=== PATIENT | female | born 1935 | race Caucasian/White ===

== ENCOUNTER 2018-12-18 11:46 | Observation (INO) | payer MEDICARE ==
[~2018-12-18] VITALS: Ht 152.4 cm; Wt 59.6 kg
[~2018-12-18 11:46] MED LIST: AMOXICILLIN250 MG PO; ATENOLOL50 MG PO; LEVOTHYROXINE50 MCG PO
--- NOTE | 2018-12-18 12:26 | NUR ---
xray at bedside
[2018-12-18 12:45] LABS: BASOPHILS % 0.4 % (0.0-1.0); EOSINOPHILS % 0.4 % (0.0-6.0); HEMATOCRIT 40.8 % (34.2-44.1); HEMOGLOBIN 13.7 g/dL (12.0-16.0); LYMPHOCYTES # (AUTO) 0.9 (1.0-3.2); LYMPHOCYTES % 15.6 % (18.0-39.1); MEAN CORPUSCULAR HEMOGLOBIN 29.6 pg (28-32); MEAN CORPUSCULAR HGB CONC 33.6 g/dL (31-35); MEAN CORPUSCULAR VOLUME 88.1 fL (81-99); MONOCYTES # (AUTO) 0.4 (0.2-0.8); MONOCYTES % 6.4 % (4.4-11.3); NEUTROPHILS # (AUTO) 4.2 (2.1-6.9); PLATELET COUNT 186 x10e3/uL (140-360); RED BLOOD COUNT 4.63 x10e6/uL (3.6-5.1)
--- NOTE | 2018-12-18 12:56 | Diagnostic Imaging Report ---
EXAMINATION: CHEST SINGLE (PORTABLE) INDICATION: Chest pain, shortness of breath. COMPARISON: Images from prior chest radiograph on 10/11/2016 were not available for review at the time of this dictation. FINDINGS: TUBES and LINES: None. LUNGS: Lungs are well inflated. No evidence of pneumonia. Mild central vascular congestion without evidence of pulmonary edema. A nodular opacity projecting over the right lower lung likely represents nipple shadow. PLEURA: No pleural effusion or pneumothorax. HEART AND MEDIASTINUM: The cardiomediastinal silhouette is unremarkable. BONES AND SOFT TISSUES: No acute osseous abnormality. Soft tissues are unremarkable. UPPER ABDOMEN: No free air under the diaphragm. IMPRESSION: No acute radiographic abnormality. Nodular opacity overlying the right lower lung likely represents nipple shadow. Repeat radiograph with nipple marker suggested for further evaluation. Signed by: Dr. Wilfredo Carr MD on 12/18/2018 12:53 PM
[2018-12-18 14:11] LABS: BILIRUBIN,URINE NEGATIVE (NEGATIVE); CLARITY,URINE CLEAR (CLEAR); COLOR,URINE YELLOW (YELLOW); KETONES,URINE 1+ (NEGATIVE); LEUKOCYTE ESTERASE ,URINE NEGATIVE (NEGATIVE); NITRITE,URINE NEGATIVE (NEGATIVE); PROTEIN,URINE DIPSTICK NEGATIVE (NEGATIVE); URINE UROBILINOGEN 0.2 mg/dL (0.2 - 1)
--- NOTE | 2018-12-18 14:26 | Diagnostic Imaging Report ---
EXAMINATION: Chest radiograph - single view INDICATION: Status post nipple marker placement, possible lung nodule per prior chest radiograph. COMPARISON: Same day chest radiograph 12/18/2018. FINDINGS: TUBES and LINES: None. LUNGS: Lungs are well inflated. No evidence of pneumonia. Mild central vascular congestion without evidence of pulmonary edema. Nipple markers are seen bilaterally. Previously noted nodular opacity in the right lower lung represented overlying ribs. PLEURA: No pleural effusion or pneumothorax. HEART AND MEDIASTINUM: The cardiomediastinal silhouette is unremarkable. BONES AND SOFT TISSUES: No acute osseous abnormality. Soft tissues are unremarkable. UPPER ABDOMEN: No free air under the diaphragm. IMPRESSION: Status post interval nipple marker placement. Previously noted right lower lung nodular opacity represented overlying ribs. No acute radiographic abnormality. Signed by: Dr. Wilfredo Carr MD on 12/18/2018 2:23 PM
[2018-12-18 14:28] LABS: EPITHELIAL CELLS,URINE RARE /LPF
[2018-12-18 15:20] LABS: INR 0.94; PROTHROMBIN TIME 13.4 seconds (11.9-14.5)
[2018-12-18 15:26] LABS: ALANINE AMINOTRANSFERASE 12 IU/L (0-55); ALBUMIN 3.5 g/dL (3.5-5.0); ALBUMIN/GLOBULIN RATIO 1.1 (0.8-2.0); ALKALINE PHOSPHATASE 83 IU/L (40-150); ANION GAP 15.3 mmol/L (8-16); BLOOD UREA NITROGEN 11 mg/dL (7-26); BUN/CREATININE RATIO 16 (6-25); CALCIUM 8.5 mg/dL (8.4-10.2); CARBON DIOXIDE 27 mmol/L (22-29); CHLORIDE 101 mmol/L (98-107); CREATINE KINASE 58 IU/L (29-168); EST GLOMERULAR FILTRATION RATE > 60 ML/MIN (60-); GLUCOSE 78 mg/dL (74-118); MAGNESIUM 2.1 MG/DL (1.3-2.1); POTASSIUM 4.3 mmol/L (3.5-5.1); SODIUM 139 mmol/L (136-145)
[2018-12-18] MEDS ORDERED: DEXTROSE 50% SYRINGE 50 ML IV PRN (15:45)
[2018-12-18] MEDS ORDERED: ASPIRIN 81 MG CHEW TAB PO ONE (15:45)
--- OUTSIDE RECORDS SUMMARY | 2018-12-18 15:56 | XMS REPORT ---
Author Author [facility] Address Unknown Phone Unavailable Care Team Providers Care Port Steward Name Role Phone Gianna DC Unavailable Unavailable Problems This patient has no known problems. Allergies, Adverse Reactions, Alerts This patient has no known allergies or adverse reactions. Medications This patient has no known medications. Results Test Description Test Time Test Comments Text Results Atomic Results Result Comments CHEST SINGLE (PORTABLE) 2018-12-18 14:20:00 [place] [address] Patient Name: TEODORA SOLARES MR #: [id number] : 1935 Age/Sex: 83/F Req #: [id number] Adm Physician: Ordered by: EULOGIO TENORIO MARKETING PRODUCTION COORDINATOR Report #: [id number] Location: ER Room/Bed: Procedure: [id number] DX/CHEST SINGLE (PORTABLE) Exam Date: 12/18/18 Exam Time: 1405 REPORT STATUS: Signed EXAMINATION: Chest radiograph - single view IN DICATION: Status post nipple marker placement, possible lung nodule per prior chest radiograph. COMPARISON: Same day chest radiograph 12/18/2018. FINDINGS: TUBES and LINES: None. LUNGS: Lungs are well inflated. No evidence of pneumonia. Mild central vascular congestion without evidence of pulmonary edema. Nipple markers are seen bilaterally. Previously noted nodular opacity in the right lower lung represented overlying ribs. PLEURA: No pleural effusion or pneumothorax. HEART AND MEDIASTINUM: The cardiomediastinal silhouette is unremarkable. BONES AND SOFT TISSUES: No acute osseous abnormality. Soft tissues are unremarkable. UPPER ABDOMEN: No free air under the diaphragm. IMPRESSION: Status post interval nipple marker placement. Previously noted right lower lung nodular opacity represented overlying ribs. No acute radiographic abnormality. Signed by: Dr. Marybel Allen MD on 12/18/2018 2:23 PM Dictated By: MARYBEL ALLEN MD 1423 Transcribed By: DEDE on 12/18/18 142 COPY TO: EULOGIO TENORIO NP CHEST SINGLE (PORTABLE) 2018-12-18 12:46:00 [place] [address] Patient Name: TEODORA SOLARES MR #: [id number] : 1935 Age/Sex: 83/F Req #: [id number] Adm Physician: Ordered by: EULOGIO TENORIO NP Report #: [id number] Location: ER Room/Bed: Procedure: [id number] DX/CHEST SINGLE (PORTABLE) Exam Date: 12/18/18 Exam Time: 1215 REPORT STATUS: Signed EXAMINATION: CHEST SINGLE (PORTABLE) INDIC ATION: Chest pain, shortness of breath. COMPARISON: Images from prior chest radiograph on 10/11/2016 were not available for review at the time of this dictation. FINDINGS: TUBES and LINES: None. LUNGS: Lungs are well inflated. No evidence of pneumonia. Mild central vascular congestion without evidence of pulmonary edema. A nodular opacity projecting over the right lower lung likely represents nipple shadow. PLEURA: No pleural effusion or pneumothorax. HEART AND MEDIASTINUM: The cardiomediastinal silhouette is unremarkable. BONES AND SOFT TISSUES: No acute osseous abnormality. Soft tissues are unremarkable. UPPER ABDOMEN: No free air under the diaphragm. IMPRESSION: No acute radiographic abnormality. Nodular opacity overlying the right lower lung likely represents nipple shadow. Repeat radiograph with nipple marker suggested for further evaluation. Signed by: Dr. Marybel Allen MD on 12/18/2018 12:53 PM Dictated By: MARYBEL ALLEN MD 1253 Transcribed By: DEDE on 12/18/18 1253 COPY TO: EULOGIO TENORIO NP
[2018-12-18] MEDS: INSULIN REGULAR, HUMAN 100 UNIT/1 ML 3ML VIAL SQ SCH ×2 (16:41→21:00)
[2018-12-18] MEDS: LISINOPRIL 10 MG TAB PO SCH (19:00)
--- NOTE | 2018-12-18 19:10 | NUR ---
Bedside rounds completed with Candy manager shift nurse.
[2018-12-18 22:22] VITALS: BP 132/78
[2018-12-18 22:30] VITALS: BP 132/78
--- NOTE | 2018-12-18 22:30 | NUR ---
PATIENT IS A NEW ADMIT THAT ARRIVED VIA WHEELCHAIR. PATIENT IS ALERT AND ORIENTED. PATIENT HAS BEEN ASSISTED INTO THE BED. BED IS IN LOWEST POSITION AND CALL MUNSON IS WITHIN REACH. WILL CONTINUE TO MONITOR PATIENT.
--- NOTE | 2018-12-18 23:10 | Consultation ---
DATE OF CONSULTATION: CARDIOLOGY CONSULTATION REASON FOR CONSULTATION: Chest pain. HISTORY OF PRESENT ILLNESS: This is an 83-year-old woman with a history of Sheehan's esophagus, gastroesophageal reflux disease, hypothyroidism, hypertension, and a "irregular heart beat." She reports progressively worsening chest pain described as a tightened and sharp sensation, moderate to severe intensity, present since Tuesday, associated with some flushing and diaphoresis. Upon arrival here, she was noted to be hypertensive and her first set of cardiac enzymes were within normal limits. REVIEW OF SYSTEMS: Twelve-point review of systems was conducted and is negative otherwise except as above in the HPI. PAST MEDICAL HISTORY: As stated above in the HPI. PAST SURGICAL HISTORY: Recent history of cholecystectomy. PAST FAMILY HISTORY: No premature coronary artery disease or sudden cardiac . SOCIAL HISTORY: No illicit drug use, alcohol use, or tobacco use. ALLERGIES: SULFA. MEDICATIONS: See medication reconciliation form. PHYSICAL EXAMINATION: VITAL SIGNS: Temperature is 98, heart rate is 65, respirations 16, blood pressure is 171/65, oxygen saturation 97% on room air. GENERAL: She is a well-appearing, elderly woman, lying comfortably in bed. HEAD: Normocephalic, atraumatic. EYES: The extraocular movements are intact. Conjunctivae are clear. NECK: No JVD, no bruits. CARDIOVASCULAR: She is regular rate and rhythm. There is a systolic murmur heard best at the left upper sternal border. LUNGS: Clear to auscultation. ABDOMEN: Soft, nontender, nondistended. EXTREMITIES: No edema. VASCULAR: 2+ pulses. SKIN: Warm, dry, intact. NEUROLOGICAL: No focal deficits noted. LABORATORY VALUES: Reviewed. Sodium 139, creatinine 0.7. Normal liver function tests. Troponin I 0.006. BNP is 63. Chest x-ray shows no acute cardiopulmonary abnormality. Twelve-lead electrocardiogram shows normal sinus rhythm. IMPRESSION: 1. Precordial pain. 2. Gastroesophageal reflux disease. 3. Hypertension. 4. Hypothyroidism. 5. Sheehan's esophagus. RECOMMENDATIONS: Continue to rule out for acute coronary syndrome with cardiac enzymes. Will order a 2D echocardiogram and keep the patient n.p.o. after midnight for a stress test if her cardiac enzymes remain within normal limits. Will start afterload reduction for better blood pressure control. Otherwise, continue all current cardiovascular medications. Job#: [id number]
[2018-12-19] VITALS (8 sets, daily range): BP systolic 97–147; BP diastolic 55–65
[2018-12-19 04:08] LABS: CHOL/HDL RATIO 2.9 (3.0-3.6)
[2018-12-19 04:19] LABS: CREATINE KINASE MB 1.2 ng/mL (0-5.0)
--- NOTE | 2018-12-19 07:02 | NUR ---
report given to day nurse. patient is resting comfortably in bed. bed is in lowest position and call german is within reach.
[2018-12-19] MEDS: INSULIN REGULAR, HUMAN 100 UNIT/1 ML 3ML VIAL SQ SCH ×3 (07:30→16:30)
[2018-12-19] MEDS: LISINOPRIL 10 MG TAB PO SCH (09:00)
[2018-12-19] MEDS: ASPIRIN 81 MG ENTERIC COATED PO SCH (09:00)
[2018-12-19] MEDS ORDERED: REGADENOSON 0.4 MG/5 ML SYR IV ONE (09:32)
[2018-12-19] MEDS ORDERED: ONDANSETRON HCL INJ 2MG/ML 2ML 2 MG/ML VIAL ONE (10:45)
--- NOTE | 2018-12-19 12:38 | NUR ---
SOCIAL WORK INITIAL ASSESSMENT Office Worker to bedside to discuss plan of care with patient/family. CM/SW role and care transitions discussed. Anticipated discharge plan discussed along with duration of care. CM/SW discussed patients right to make decisions in care. CM/SW work hours given. Patient lives: IN HOME WITH FAMILY Admit/Transfer: VIA ED POA/Emergency contact: DAUGHTER EVON [phone] OR SON JUSTIN [phone] Current/Previous Home Health: NONE PCP/Follow-up Care: [facility] Current/Previous DME: [facility] A WALKER Other Services: NONE Employment Status: RETIRED Areas of Concerns: NONE Referral Needs: NONE Education Needs: NONE IMM/DANIELS given and signed (if applicable): UPON ADMISSION Goal for discharge: RETURN HOME WITH FAMILY CM/SW left business card at the bedside with contact information. Name and number was also written on the patients whiteboard. Patient verbalized understanding of discussion. CM will follow-up with ongoing discharge and transition of care needs.
[2018-12-19 13:06] LABS: CREATINE KINASE MB 1.6 ng/mL (0-5.0)
--- NOTE | 2018-12-19 14:15 | NUR ---
Visit made by the Spiritual Care Department Pastoral Visitor, Narcisa Suarez. PV provided pastoral presence, prayer, hospitality, and supportive listening. Pastoral Visitor informed pt/family of the scope of Professor Of Business Administration Services and availability. SATHISH ABRAHAM Pipe Recovery Specialist Spiritual Care Department O: [phone] Pager: [phone] ([phone] number calling from)
--- NOTE | 2018-12-19 14:57 | NUR ---
Called Dr. Neela Arana to notify him of consult patient reporting abdominal pain nausea, and diarrhea. He will come to see patient.
[2018-12-19] MEDS ORDERED: ONDANSETRON HCL INJ 2MG/ML 2ML 2 MG/ML VIAL IV NR (18:30)
[2018-12-19] MEDS ORDERED: ONDANSETRON HCL INJ 2MG/ML 2ML 2 MG/ML VIAL IV PRN (18:30)
[2018-12-19] MEDS ORDERED: MORPHINE SULFATE INJ 4 MG/ML INJ 1ML IV NR (18:45)
[2018-12-19] MEDS ORDERED: MORPHINE SULFATE INJ 4 MG/ML INJ 1ML IV PRN (18:45)
[2018-12-19] MEDS: DONNATAL/LIDOCAINE/MAALOX 30 ML SUSP PO PRN (19:57)
[2018-12-20] VITALS (9 sets, daily range): BP systolic 97–131; BP diastolic 46–60
--- NOTE | 2018-12-20 01:23 | NUR ---
round the patient at this time.
[2018-12-20] MEDS: PANTOPRAZOLE 40 MG 10ML VIAL IV SCH ×2 (03:09→15:55)
[2018-12-20] MEDS: DONNATAL/LIDOCAINE/MAALOX 30 ML SUSP PO PRN (06:05)
[2018-12-20] MEDS: LEVOTHYROXINE SODIUM 50 MCG TAB PO SCH (06:24)
--- NOTE | 2018-12-20 07:17 | NUR ---
Report given to GREGORY Patrick,walking round done.
[2018-12-20] MEDS: ASPIRIN 81 MG ENTERIC COATED PO SCH (08:48)
[2018-12-20] MEDS: ATENOLOL 50 MG TAB PO SCH (08:49)
--- NOTE | 2018-12-20 11:36 | NUR ---
Dr. Avani Arana rounding and stat KUB ordered for pain/distention. Radiology called to notify of stat order.
--- NOTE | 2018-12-20 13:01 | NUR ---
POST DISCHARGE STATUS FORM FILED IN FRONT OF CHART NO NEEDS RETURNING HOME.
--- NOTE | 2018-12-20 13:55 | NUR ---
Pre-op here to take patient to endo. Patient A&O x3. No complains or concerns at this time.
--- NOTE | 2018-12-20 14:56 | Diagnostic Imaging Report ---
Exam: Abdominal film Clinical History: Abdominal pain, distention Comparison: None. DISCUSSION: Frontal view of the abdomen shows a nonobstructive bowel gas pattern with mild amount of retained stool. No dilated, air-filled loops of bowel. No abnormal calcifications. Right upper quadrant clips. IMPRESSION: Nonobstructive bowel gas pattern. Signed by: Dr. Phoenix Pizano M.D. on 12/20/2018 2:53 PM
--- NOTE | 2018-12-20 15:00 | NUR ---
Patient returned to room from EGD, awake, alert and oriented. Assisted transfer back to bed. V/S WNL
--- NOTE | 2018-12-20 16:21 | Operative Report ---
DATE OF PROCEDURE: December 20, 2018 REFERRING PHYSICIAN: Dr. Teto Valente PROCEDURE PERFORMED: Esophagogastroduodenoscopy with biopsies. INDICATIONS FOR EGD: Upper abdominal pain exacerbated with meals. MEDICATION: Patient was done under MAC. Please see anesthesiologist's note. PROCEDURE: With the patient in the left lateral decubitus position, the flexible fiberoptic Olympus gastroscope was introduced into the esophagus under direct visualization without any difficulty. There was some patchy erythema noted in the distal esophagus. A small sliding hiatal hernia was noted, and the scope was advanced with ease into the stomach. Mucosa overlying the antrum and the body revealed some diffuse erythema and mild to moderate edema. Biopsies were obtained and sent to stain for H. pylori. Pylorus appeared to be of normal contour and shape. It was intubated with ease, and the scope was advanced all the way to the 2nd portion of the duodenum. The scope was then withdrawn slowly. Mucosa overlying the proximal 2nd portion and the duodenal bulb appeared to be within normal limits. The scope was then withdrawn back into the stomach and retroflexed. Mucosa overlying the fundus and cardia appeared to be within normal limits. The scope was then straightened out. The stomach was decompressed. The scope was subsequently withdrawn. Patient tolerated the procedure well. IMPRESSION 1. Distal esophagitis. 2. Small sliding hiatal hernia. 3. Gastritis, biopsied. Biopsies sent to stain for H. pylori. PLAN: Follow up histology. Initiate Protonix 40 mg 1 p.o. q.a.m. a.c. Findings do not necessarily explain the patient's abdominal pain. Will proceed with CT scan of the abdomen. Job#: [id number] cc:YELENA VALENTE DO
--- NOTE | 2018-12-20 16:30 | NUR ---
Dr. Yissel Arana called to recovery room. still doing procedures and message left regarding clarification on diet. Awaiting call back.
--- NOTE | 2018-12-20 16:42 | Progress Note ---
DATE: December 20, 2018 CARDIOLOGY PROGRESS NOTE SUBJECTIVE: Patient denies chest pain or shortness of breath. She is complaining of abdominal discomfort. OBJECTIVE: VITAL SIGNS: Temperature 98.1 degrees, pulse 61, respiratory rate 16, blood pressure 122/47, oxygen saturation 98% on room air. GENERAL: Elderly woman in no acute distress. Awake and alert. LUNGS: Clear to auscultation bilaterally. No wheezes or crackles. CARDIOVASCULAR: Normal rate, regular rhythm. Systolic murmur at the left upper sternal border. Normal S1 and S2. ABDOMEN: Soft. Nontender. EXTREMITIES: No edema. CARDIAC MEDICATIONS 1. Levothyroxine 88 mcg p.o. daily. 2. Atenolol 25 mg p.o. daily. 3. Aspirin 81 mg p.o. daily. LABS: None today. TELEMETRY: Normal sinus rhythm. IMPRESSION 1. Chest pain. 2. Abdominal discomfort. 3. Hypertension. 4. Hypothyroidism. 5. Gastroesophageal reflux disease. 6. Sheehan esophagus. RECOMMENDATIONS: Patient ruled out for myocardial infarction with serial cardiac biomarkers. Nuclear stress test was without evidence of ischemia. Patient's blood pressure is controlled. Further evaluation of the patient's abdominal discomfort per GI. Maintain patient on telemetry. Thank you for this consult. We will continue to follow. Job#: [id number]
--- NOTE | 2018-12-20 17:46 | NUR ---
Dr. Yissel Arana paged to give CT results and clarify diet order.
--- NOTE | 2018-12-20 17:47 | Diagnostic Imaging Report ---
EXAM: CT ABDOMEN AND PELVIS IV CONTRAST DATE: 12/20/2018 Time stamp on Exam: 4:32 PM INDICATION: Abdominal pain and distention. Patient had EGD today. COMPARISON: None TECHNIQUE: The abdomen and pelvis were scanned using a multidetector helical scanner. Coronal and sagittal reformations were obtained. Routine protocol performed. IV Contrast: 100 cc of Isovue-370 Oral Contrast: None Radiation Dose: Total DLP 278.95 mGy*cm; low-dose parameters were utilized to keep the dose as low as possible. Estimated effective dose: DLP x 0.015 x size factor FINDINGS: LOWER THORAX: No consolidations LIVER: No masses with decreased attenuation of the liver compared to the spleen. BILIARY: Gallbladder is absent with clips in the fossa. No ductal dilatation. SPLEEN: No masses PANCREAS: No masses ADRENALS: No nodules KIDNEYS: Symmetric perfusion. No enhancing masses. There is a 10 mm interpolar left renal cyst. No hydronephrosis. GI TRACT: Mild small bowel and large bowel distention may be related to the endoscopy with air insufflation or an ileus. VESSELS: Unremarkable PERITONEUM/RETROPERITONEUM: No free air. Small amount of fluid around the liver, left lower quadrant and within the pelvis traffic representative of ascites. LYMPH NODES: No lymphadenopathy REPRODUCTIVE ORGANS: Unremarkable BLADDER: Unremarkable SOFT TISSUES: Unremarkable BONES: No suspicious bone lesions. IMPRESSION: 1. No evidence of free air or perforation. 2. Small volume ascites. 3. Diffuse hepatic fatty infiltration. 4. Mild air distention of large and small bowel loops. Signed by: Dr. Douglas Busch DO on 12/20/2018 5:44 PM
--- NOTE | 2018-12-20 18:37 | NUR ---
Resting in bed, C/O gas pain, with med PRN. No other issues at this time
[2018-12-20] MEDS ORDERED: SODIUM CHLORIDE 0.9% 50ML 50 ML ONE (19:23)
[2018-12-20] MEDS ORDERED: IOPAMIDOL 370 MG/ML 200 ML INFUS..BTL INJ ONE (19:23)
[2018-12-21 00:21] VITALS: BP 125/61
[2018-12-21] MEDS ORDERED: LACTATED RINGER'S 1,000 ML IV SCH (02:00)
[2018-12-21] MEDS ORDERED: BISACODYL 10 MG SUPP PR ONE (02:30)
[2018-12-21] MEDS ORDERED: BISACODYL 10 MG SUPP PR PRN (02:30)
[2018-12-21] MEDS: PANTOPRAZOLE 40 MG 10ML VIAL IV SCH (02:43)
[2018-12-21 04:46] VITALS: BP_SYST 125; BP_SYST 145; BP_DIAS 61; BP_DIAS 68
[2018-12-21] MEDS: LEVOTHYROXINE SODIUM 50 MCG TAB PO SCH (05:51)
--- NOTE | 2018-12-21 06:58 | NUR ---
Patient is resting in bed without c/o pain, nausea or vomiting at this time. POC discussed. Patient instructed to call for assistance as needed and verbalized. Bed in owest position, locked and call german within reach.
[2018-12-21 07:52] VITALS: BP 127/57
[2018-12-21 08:00] VITALS: BP 127/57
[2018-12-21] MEDS: ASPIRIN 81 MG ENTERIC COATED PO SCH ×2 (09:00→09:06)
[2018-12-21] MEDS: ATENOLOL 50 MG TAB PO SCH (09:07)
[2018-12-21 11:00] LABS: C DIFFICILE TOXIN A&B AMP PROB NEGATIVE (NEGATIVE); WBC,FECAL (FECAL LACTOFERRIN) NEGATIVE (NEGATIVE)
[2018-12-21 12:10] VITALS: BP 111/55
[2018-12-21] MEDS ORDERED: PANTOPRAZOLE SO40 MG PO (13:18)
[2018-12-21] MEDS ORDERED: PROPOFOL IV EMULSION 10 MG/ML 20 ML VIAL ONE (13:31)
--- NOTE | 2018-12-21 14:05 | NUR ---
Patient discharged home with written instruction and prescription. She verbalized understanding, Pt wheeled to the front with all belongings in stable condition.
== END 2018-12-21 14:05 | disposition home or self-care (01) ==
LOC: ER 11:46 → ERHOLD 15:45 → IMCU 22:22
DX: R07.89 Other chest pain (principal); E05.00 Thyrotoxicosis with diffuse goiter without thyrotoxic crisis or storm; K22.70 Barrett's esophagus without dysplasia; K21.9 Gastro-esophageal reflux disease without esophagitis; Z88.2 Allergy status to sulfonamides; Z82.49 Family history of ischemic heart disease and other diseases of the circulatory system; E03.9 Hypothyroidism, unspecified; K44.9 Diaphragmatic hernia without obstruction or gangrene; K29.70 Gastritis, unspecified, without bleeding; I10 Essential (primary) hypertension; R19.7 Diarrhea, unspecified; N28.1 Cyst of kidney, acquired
CPT/HCPCS: 36415; 43239; 71045; 74018; 74177; 78452; 80053; 80061; 81001; 82550 ×2; 82553 ×2; 82948; 83630; 83735; 83880; 84484 ×2; 85025; 85610; 87045; 87177; 87493; 88305; 88312; 93005; 93017; 93306; 99284; A9502; C9113 ×2; G0378 ×4; J2270; J2405; J2704; J2785; J7121; Q9967

== ENCOUNTER → 2021-05-28 | Outpatient (CLI) | payer MEDICARE ==
[~2021-05-28] MED LIST changes: +PANTOPRAZOLE SO40 MG PO
== END ==
LOC: MRI 09:42
PROVIDERS: ATTEND Family Medicine
DX: R51.9 Headache, unspecified (principal); J32.9 Chronic sinusitis, unspecified
CPT/HCPCS: 70551

== ENCOUNTER → 2023-02-10 | Outpatient (CLI) | payer MEDICARE ==
[~2023-02-10] MED LIST changes: +IOPAMIDOL 370 MG/ML 100 ML INFUS..BTL INJ ONE; +SODIUM CHLORIDE 0.9% 100 ML ONE
[2023-02-10 12:35] LABS: CREATININE, SERUM 0.7 mg/dL (0.57-1.11)
== END ==
LOC: CT 11:37
PROVIDERS: ATTEND Internal Medicine
DX: Z13.6 Encounter for screening for cardiovascular disorders (principal)
CPT/HCPCS: 36415; 70498; 82565; 84520; J7050; Q9967

== ENCOUNTER 2023-09-01 23:18 | Inpatient (IN) | payer MEDICARE ==
[~2023-09-01] VITALS: Ht 152.4 cm; Wt 58.5 kg
[~2023-09-01 23:18] MED LIST changes: -IOPAMIDOL 370 MG/ML 100 ML INFUS..BTL INJ ONE; -SODIUM CHLORIDE 0.9% 100 ML ONE
[2023-09-01] MEDS ORDERED: ONDANSETRON HCL INJ 2MG/ML 2ML 2 MG/ML VIAL IV STA (23:21)
[2023-09-01] MEDS ORDERED: DIPHENHYDRAMINE HCL INJ 50 MG/ML VIAL ONE (23:36)
[2023-09-01] MEDS ORDERED: DIPHENHYDRAMINE HCL INJ 50 MG/ML VIAL IV ONE (23:45)
[2023-09-01 23:46] LABS: BASOPHILS % 0.6 % (0.0-1.0); EOSINOPHILS # (AUTO) 0.1 (0.0-0.4); EOSINOPHILS % 1.1 % (0.0-6.0); HEMATOCRIT 37.5 % (34.2-44.1); HEMOGLOBIN 12.9 g/dL (12.0-16.0); LYMPHOCYTES # (AUTO) 1.4 (1.0-3.2); LYMPHOCYTES % 26.1 % (18.0-39.1); MEAN CORPUSCULAR HEMOGLOBIN 30.1 pg (28-32); MEAN CORPUSCULAR HGB CONC 34.4 g/dL (31-35); MEAN CORPUSCULAR VOLUME 87.4 fL (81-99); MONOCYTES # (AUTO) 0.4 (0.2-0.8); MONOCYTES % 7.6 % (4.4-11.3); NEUTROPHILS # (AUTO) 3.4 (2.1-6.9); NEUTROPHILS % 64.4 % (38.7-80.0); PLATELET COUNT 181 x10e3/uL (140-360); RED BLOOD COUNT 4.29 x10e6/uL (3.6-5.1); RED CELL DISTRIBUTION WIDTH 12.8 % (11.7-14.4); WHITE BLOOD COUNT 5.29 x10e3/uL (4.8-10.8)
[2023-09-01 23:59] LABS: ALBUMIN/GLOBULIN RATIO 1.2 (0.8-2.0); ANION GAP 14.1 mmol/L (8-16); CALCIUM 8.9 mg/dL (8.4-10.2); CREATININE, SERUM 0.73 mg/dL (0.57-1.11); POTASSIUM 4.1 mmol/L (3.5-5.1)
[2023-09-02] VITALS (7 sets, daily range): BP systolic 131–140; BP diastolic 61–77; PULSE 61–70; RESP 14–18; TEMP 98.3–98.7; O2SAT 96–99
[2023-09-02] MEDS ORDERED: IOPAMIDOL 370 MG/ML 100 ML INFUS..BTL INJ ONE (00:18)
[2023-09-02 00:33] LABS: CLARITY,URINE SL CLOUDY (CLEAR); COLOR,URINE YELLOW (YELLOW); KETONES,URINE TRACE (NEGATIVE); LEUKOCYTE ESTERASE ,URINE TRACE (NEGATIVE); NITRITE,URINE NEGATIVE (NEGATIVE); PROTEIN,URINE DIPSTICK NEGATIVE (NEGATIVE); URINE UROBILINOGEN 0.2 mg/dL (0.2 - 1)
[2023-09-02 00:36] LABS: BACTERIA,URINE FEW /HPF; EPITHELIAL CELLS,URINE RARE /LPF
[2023-09-02] MEDS ORDERED: ASPIRIN 81 MG CHEW TAB PO ONE (01:45)
[2023-09-02] MEDS ORDERED: Morphine 2mg Syringe 2 MG/ML SYR IV PRN (01:45)
[2023-09-02] MEDS ORDERED: ONDANSETRON HCL INJ 2MG/ML 2ML 2 MG/ML VIAL IV PRN (01:45)
[2023-09-02] MEDS ORDERED: ACETAMINOPHEN 325 MG TAB PO PRN (12:00)
[2023-09-02] MEDS ORDERED: SODIUM CHLORIDE 0.9% 1000ML 1,000 ML IV SCH (14:00)
[2023-09-02] MEDS ORDERED: LEVOTHYROXINE88 MCG PO (15:25)
[2023-09-02] MEDS ORDERED: METOPROLOL SUCC25 MG PO (15:25)
[2023-09-02] MEDS: ENOXAPARIN SOD INJ 40 MG/0.4 ML SYR SC SCH (18:30)
[2023-09-02] MEDS: METOPROLOL TARTRATE 25 MG TAB PO SCH (18:31)
[2023-09-03 06:13] LABS: BASOPHILS % 0.7 % (0.0-1.0); EOSINOPHILS # (AUTO) 0.1 (0.0-0.4); EOSINOPHILS % 1.9 % (0.0-6.0); HEMATOCRIT 36.6 % (34.2-44.1); HEMOGLOBIN 12.4 g/dL (12.0-16.0); LYMPHOCYTES # (AUTO) 0.9 (1.0-3.2); LYMPHOCYTES % 21.9 % (18.0-39.1); MEAN CORPUSCULAR HEMOGLOBIN 29.8 pg (28-32); MEAN CORPUSCULAR HGB CONC 33.9 g/dL (31-35); MONOCYTES # (AUTO) 0.3 (0.2-0.8); NEUTROPHILS # (AUTO) 2.9 (2.1-6.9); NEUTROPHILS % 68.3 % (38.7-80.0); PLATELET COUNT 168 x10e3/uL (140-360); RED BLOOD COUNT 4.16 x10e6/uL (3.6-5.1); RED CELL DISTRIBUTION WIDTH 12.8 % (11.7-14.4)
[2023-09-03 06:34] LABS: ALBUMIN 3.3 g/dL (3.5-5.0); ALBUMIN/GLOBULIN RATIO 1.1 (0.8-2.0); CALCIUM 8.1 mg/dL (8.4-10.2); CHOL/HDL RATIO 2.7 (3.0-3.6); CREATININE, SERUM 0.72 mg/dL (0.57-1.11)
[2023-09-03 06:55] LABS: FERRITIN 58.33 ng/mL (4.63-204.00)
[2023-09-03 07:02] LABS: FREE T4 (FREE THYROXINE) 1.17 ng/dL (0.8-1.8); THYROID STIMULATING HORMONE 0.95 uIU/mL (0.350-4.940)
[2023-09-03 08:00] VITALS: BP 143/75; PULSE 73; RESP 18; TEMP 98.5; O2SAT 100
[2023-09-03 09:08] VITALS: BP 143/75; PULSE 73; RESP 18; TEMP 98.5; O2SAT 100
[2023-09-03] MEDS: METOPROLOL TARTRATE 25 MG TAB PO SCH ×2 (09:12→17:54)
[2023-09-03] MEDS ORDERED: SIMETHICONE 80 MG CHEW PO PRN (12:30)
[2023-09-03 12:52] VITALS: BP 127/54; PULSE 62; RESP 16; TEMP 97.8; O2SAT 100
[2023-09-03 16:56] VITALS: BP 130/64; PULSE 60; RESP 16; TEMP 97.9; O2SAT 100
[2023-09-03] MEDS: ENOXAPARIN SOD INJ 40 MG/0.4 ML SYR SC SCH (17:54)
[2023-09-03 20:00] VITALS: BP 127/56; PULSE 60; RESP 16; TEMP 97.6; O2SAT 100
[2023-09-04] VITALS: BP 165/57; PULSE 54; RESP 16; TEMP 97.4; O2SAT 99
[2023-09-04 05:32] VITALS: BP 155/61; PULSE 59; RESP 18; TEMP 97.4; O2SAT 100
[2023-09-04 05:39] LABS: BASOPHILS % 0.9 % (0.0-1.0); EOSINOPHILS # (AUTO) 0.1 (0.0-0.4); EOSINOPHILS % 2.2 % (0.0-6.0); HEMATOCRIT 36.4 % (34.2-44.1); HEMOGLOBIN 12.3 g/dL (12.0-16.0); LYMPHOCYTES # (AUTO) 1.6 (1.0-3.2); LYMPHOCYTES % 34.3 % (18.0-39.1); MEAN CORPUSCULAR HEMOGLOBIN 29.6 pg (28-32); MEAN CORPUSCULAR HGB CONC 33.8 g/dL (31-35); MEAN CORPUSCULAR VOLUME 87.7 fL (81-99); MONOCYTES # (AUTO) 0.4 (0.2-0.8); MONOCYTES % 7.5 % (4.4-11.3); NEUTROPHILS # (AUTO) 2.6 (2.1-6.9); NEUTROPHILS % 54.9 % (38.7-80.0); PLATELET COUNT 181 x10e3/uL (140-360); RED BLOOD COUNT 4.15 x10e6/uL (3.6-5.1); RED CELL DISTRIBUTION WIDTH 12.6 % (11.7-14.4); WHITE BLOOD COUNT 4.64 x10e3/uL (4.8-10.8)
[2023-09-04 06:24] LABS: ALBUMIN 3.6 g/dL (3.5-5.0); ALBUMIN/GLOBULIN RATIO 1.2 (0.8-2.0); ANION GAP 12.8 mmol/L (8-16); CALCIUM 8.2 mg/dL (8.4-10.2); CREATININE, SERUM 0.75 mg/dL (0.57-1.11); POTASSIUM 3.8 mmol/L (3.5-5.1)
[2023-09-04] MEDS ORDERED: LEVOTHYROXINE SODIUM 88 MCG TAB PO SCH (07:30)
[2023-09-04 08:58] VITALS: BP 140/65; PULSE 74; RESP 16; TEMP 97.6; O2SAT 100
[2023-09-04] MEDS ORDERED: FERROUS SULFATE 325 MG TAB PO SCH (09:00)
[2023-09-04 12:28] VITALS: BP 131/68; PULSE 71; RESP 16; TEMP 97.9; O2SAT 100
[2023-09-04] MEDS ORDERED: BISACODYL 10 MG SUPP PR ONE (12:30)
[2023-09-04] MEDS: METOPROLOL TARTRATE 25 MG TAB PO SCH ×2 (12:37→17:27)
[2023-09-04] MEDS ORDERED: MINERAL OIL 132 ML BTL PR ONE (13:25)
[2023-09-04] MEDS ORDERED: SIMETHICONE80 MG PO (14:37)
[2023-09-04] MEDS ORDERED: PANTOPRAZOLE SO40 MG PO (14:37)
[2023-09-04] MEDS: ENOXAPARIN SOD INJ 40 MG/0.4 ML SYR SC SCH (17:00)
[2023-09-04 17:27] VITALS: BP 131/68; PULSE 71
[2023-09-05] MEDS ORDERED: PANTOPRAZOLE SOD 40 MG TABEC PO SCH (07:30)
[2023-09-19] MEDS ORDERED: zinc PO (09:58)
[2023-09-19] MEDS ORDERED: VIT D PO (09:58)
[2023-09-19] MEDS ORDERED: PROBIOTIC & AC1 EACH PO (09:58)
[2023-09-19] MEDS ORDERED: MULTI-VITAMIN1 EACH PO (09:58)
== END 2023-09-04 18:55 | disposition home or self-care (01) | DRG 392 ==
LOC: ER 23:25 → ERHOLD 09-02 01:38 → MED/SURG2 09-02 14:05 → OBSVTOIN 09-02 16:44
PROVIDERS: ADMIT Internal Medicine; ATTEND Internal Medicine
DX: K21.9 Gastro-esophageal reflux disease without esophagitis (principal); N39.0 Urinary tract infection, site not specified; N13.30 Unspecified hydronephrosis; I49.3 Ventricular premature depolarization; R07.89 Other chest pain; K22.70 Barrett's esophagus without dysplasia; K58.0 Irritable bowel syndrome with diarrhea; E61.1 Iron deficiency; I10 Essential (primary) hypertension; E89.0 Postprocedural hypothyroidism; Z11.52 Encounter for screening for COVID-19
CPT/HCPCS: 36415; 71045; 74177; 80053; 80061; 81001; 82550; 82607; 82728; 83036; 83540; 83690; 83735; 84439; 84443; 84466; 84480; 84481; 84484; 85025; 87086; 93005; 94799; 99284; J0696; J1200; J1650; J2405; J7030; Q9967; U0002